=== PATIENT | female | born 1940 | race Caucasian/White ===

== ENCOUNTER 2023-11-23 21:51 | Inpatient (IN) | payer OTHER ==
[~2023-11-23] VITALS: Ht 160 cm; Wt 106.7 kg
[2023-11-23] MEDS ORDERED: IV NS 0.9% 1,000 ML BAG IV ONE ×2 (22:00→22:30)
[2023-11-23] MEDS ORDERED: HALOPERIDOL LACTATE INJ 5 MG/ML VIAL ONE (22:26)
[2023-11-23] MEDS ORDERED: HALOPERIDOL LACTATE INJ 5 MG/ML VIAL IM ONE (22:30)
[2023-11-23] MEDS ORDERED: PIPERACILLIN /TAZOBACTAM 3.375 G in IV D5W 50 ML IV ONE (23:00)
[2023-11-23] MEDS ORDERED: PIPERACI/TAZO 3.375GM/D5W 50ML PB IV ONE (23:09)
[2023-11-23 23:32] LABS: APPEARANCE,URINE SLIGHTLY CLOUDY (CLEAR); BILIRUBIN,URINE 1+ (NEGATIVE); BLOOD, URINE NEGATIVE Ery/uL (NEGATIVE); COLOR,URINE YELLOW (YELLOW); KETONES,URINE TRACE mg/dL (NEGATIVE); LEUKOCYTE ESTERASE ,URINE TRACE (NEGATIVE); NITRITE, URINE NEGATIVE (NEGATIVE); PROTEIN,URINE TRACE mg/dl (NEGATIVE); UGLUCOSE NEGATIVE (NEGATIVE); UROBILINOGEN,URINE 0.2 EU/dL (0.2)
[2023-11-23] MEDS ORDERED: NALOXONE PREFILLED SYRINGE 2 MG/2 ML SYRINGE ONE (23:32)
[2023-11-23 23:38] LABS: RBC,URINE 0-2 /HPF (0-2)
[2023-11-23 23:39] LABS: ADD URINE CULTURE NO; BACTERIA,URINE Rare /HPF (None Seen); SQUAMOUS EPITHELIAL CELL,UR Few /HPF (None Seen)
[2023-11-23 23:40] LABS: BARBITURATE, URINE NEGATIVE (NEGATIVE); BENZODIAZEPINE, URINE NEGATIVE (NEGATIVE); CANNABINOID, URINE NEGATIVE (NEGATIVE); COCCAINE, URINE NEGATIVE (NEGATIVE); PHENCYCLIDINE SCREEN,URINE NEGATIVE (NEGATIVE)
[2023-11-23 23:42] LABS: AMPHETAMINE, URINE POSITIVE (NEGATIVE); OPIATE, URINE POSITIVE (NEGATIVE)
[2023-11-23 23:46] LABS: BASOPHILS % (AUTO) 0.5 % (0.0-2.0); EOSINOPHILS # (AUTO) 0.1 K/uL (0.0-0.7); EOSINOPHILS % (AUTO) 1.2 % (0.0-6.0); LYMPHOCYTES # (AUTO) 0.3 K/uL (0.8-4.8); MEAN CORPUSCULAR HEMOGLOBIN 28 PG (26.0-33.0); MEAN CORPUSCULAR HGB CONC 29 g/dl (31.0-36.0); MEAN CORPUSCULAR VOLUME 98 fL (82-100); MONOCYTES # (AUTO) 0.2 K/uL (0.1-1.30); MONOCYTES % (AUTO) 3.9 % (2.0-12.0); NEUTROPHILS # (AUTO) 4.6 K/uL (1.8-8.9); NEUTROPHILS % (AUTO) 88.4 % (43.0-81.0); PLATELET COUNT (AUTO) 120 K/uL (150-450); RED CELL DISTRIBUTION WIDTH 18.7 % (11.5-15.0); WHITE BLOOD COUNT (AUTO) 5.2 K/uL (4.3-11.0)
[2023-11-23 23:50] LABS: RED BLOOD CELL COUNT(AUTO) 1.37 MIL/uL (4.0-5.2)
[2023-11-24] MEDS ORDERED: NALOXONE HCL 0.4 MG/ML AMPUL IV ONE
[2023-11-24] MEDS ORDERED: PANTOPRAZOLE 40 MG VIAL IV ONE
[2023-11-24 00:02] LABS: INR 1.36 (0.91-1.10); PARTIAL THROMBOPLASTIN TIME 31.7 SEC (24.3-34.3); PROTHROMBIN TIME 14.1 SECS (9.2-11.1)
[2023-11-24] MEDS ORDERED: PANTOPRAZOLE 40 MG VIAL ONE (00:04)
[2023-11-24 01:31] LABS: BASOPHILS # (AUTO) 0.1 K/uL (0.0-0.2); BASOPHILS % (AUTO) 0.4 % (0.0-2.0); EOSINOPHILS # (AUTO) 0.1 K/uL (0.0-0.7); EOSINOPHILS % (AUTO) 0.7 % (0.0-6.0); HEMATOCRIT 38 % (33-45); HEMOGLOBIN 11.8 g/dL (11.5-14.8); LYMPHOCYTES % (AUTO) 6.3 % (20.0-44.0); MEAN CORPUSCULAR HEMOGLOBIN 27 PG (26.0-33.0); MEAN CORPUSCULAR HGB CONC 31 g/dl (31.0-36.0); MEAN CORPUSCULAR VOLUME 84 fL (82-100); MONOCYTES # (AUTO) 0.6 K/uL (0.1-1.30); MONOCYTES % (AUTO) 3.5 % (2.0-12.0); NEUTROPHILS # (AUTO) 14.4 K/uL (1.8-8.9); NEUTROPHILS % (AUTO) 89.1 % (43.0-81.0); PLATELET COUNT (AUTO) 326 K/uL (150-450); RED BLOOD CELL COUNT(AUTO) 4.44 MIL/uL (4.0-5.2); RED CELL DISTRIBUTION WIDTH 17.4 % (11.5-15.0); WHITE BLOOD COUNT (AUTO) 16.1 K/uL (4.3-11.0)
[2023-11-24 01:39] LABS: HEMATOCRIT 13 % (33-45); HEMOGLOBIN 3.9 g/dL (11.5-14.8)
[2023-11-24 01:49] LABS: SERUM AMMONIA 11 umol/L (11-32)
[2023-11-24 01:51] LABS: ALANINE AMINOTRANSFERASE 46 U/L (12-78); ALBUMIN 1.7 g/dL (3.4-5.0); ALCOHOL, BLOOD < 3 mg/dL (0-10); ALKALINE PHOSPHATASE 125 U/L (46-116); ASPARTATE AMINOTRANSFERASE 44 U/L (15-37); BILIRUBIN,DIRECT 0.3 mg/dL (0.0-0.2); BILIRUBIN,TOTAL 0.5 mg/dL (0.2-1.0); CARBON DIOXIDE 22 mmol/L (21-32); CHLORIDE 101 mmol/L (98-107); CREATININE 1.1 mg/dL (0.6-1.3); GLUCOSE 111 mg/dL (74-106); POTASSIUM 3.9 mmol/L (3.5-5.1); SODIUM SERUM 133 mmol/L (136-145); TOTAL PROTEIN, SERUM 6.3 g/dL (6.4-8.2); UREA NITROGEN, BLOOD 26 mg/dL (7-18)
[2023-11-24] MEDS ORDERED: IV NS 0.9% 1,000 ML BAG IV ONE (02:00)
[2023-11-24] MEDS ORDERED: ALBUMIN 25% 12.5 GM/50 ML BOTTLE IV ONE (02:00)
[2023-11-24 02:02] LABS: THYROID STIMULATING HORMONE 22.037 uIU/mL (0.358-3.74)
[2023-11-24] MEDS ORDERED: ALBUMIN 25% 50 ML IV ONE ×2 (02:04→02:59)
[2023-11-24] MEDS ORDERED: IV NS 0.9% 1,000 ML IV PRN (02:30)
[2023-11-24] MEDS ORDERED: ENOXAPARIN SODIUM 40 MG/0.4 ML DISP.SYRIN SQ SCH (02:30)
[2023-11-24] MEDS ORDERED: QUETIAPINE FUMARATE 25 MG TABLET PO PRN (02:30)
[2023-11-24] MEDS ORDERED: Z GUARD REMEDY 4 OZ OINT TP PRN (02:30)
[2023-11-24] MEDS ORDERED: MAGNESIUM HYDROXIDE 30 ML UDC PO PRN (02:30)
[2023-11-24] MEDS ORDERED: dexaMETHasone SOD PHOSPHATE 1 ML ONE (03:50)
[2023-11-24] MEDS ORDERED: NOREPINEPHRINE 8MG/250ML RTU 250 ML IV ONE (03:59)
[2023-11-24] MEDS ORDERED: dexaMETHasone SOD PHOSPHATE 10 MG/ML VIAL IV ONE (04:00)
[2023-11-24] MEDS ORDERED: NOREPINEPHRINE 8 MG in IV NS 0.9% 250 ML IV ONE (04:00)
[2023-11-24] MEDS ORDERED: LEVOTHYROXINE INJ 100 MCG VIAL IV ONE (04:26)
[2023-11-24] MEDS ORDERED: LEVOTHYROXINE INJ 100 MCG VIAL IV SCH (07:30)
[2023-11-24] MEDS: PANTOPRAZOLE 40 MG TABLET.DR PO SCH ×2 (07:30→08:00)
[2023-11-24 07:38] LABS: BASOPHILS % (AUTO) 0.1 % (0.0-2.0); EOSINOPHILS % (AUTO) 0.1 % (0.0-6.0); HEMATOCRIT 37 % (33-45); HEMOGLOBIN 11.4 g/dL (11.5-14.8); LYMPHOCYTES # (AUTO) 0.7 K/uL (0.8-4.8); LYMPHOCYTES % (AUTO) 3.1 % (20.0-44.0); MEAN CORPUSCULAR HEMOGLOBIN 27 PG (26.0-33.0); MEAN CORPUSCULAR HGB CONC 31 g/dl (31.0-36.0); MEAN CORPUSCULAR VOLUME 86 fL (82-100); MONOCYTES # (AUTO) 0.4 K/uL (0.1-1.30); MONOCYTES % (AUTO) 1.7 % (2.0-12.0); NEUTROPHILS # (AUTO) 22.3 K/uL (1.8-8.9); PLATELET COUNT (AUTO) 440 K/uL (150-450); RED BLOOD CELL COUNT(AUTO) 4.25 MIL/uL (4.0-5.2); RED CELL DISTRIBUTION WIDTH 17.8 % (11.5-15.0); WHITE BLOOD COUNT (AUTO) 23.5 K/uL (4.3-11.0)
[2023-11-24 07:51] LABS: CALCIUM, SERUM 7.6 mg/dL (8.5-10.1); CREATININE 1.1 mg/dL (0.6-1.3); MAGNESIUM 1.6 mg/dL (1.8-2.4); POTASSIUM 3.9 mmol/L (3.5-5.1)
[2023-11-24 08:10] LABS: THYROID STIMULATING HORMONE 10.095 uIU/mL (0.358-3.74)
[2023-11-24] MEDS ORDERED: ACET-2605 PO (08:28)
[2023-11-24] MEDS ORDERED: ASPI-1169 PO (08:28)
[2023-11-24] MEDS ORDERED: HYDR4TAB57 PO (08:28)
[2023-11-24] MEDS ORDERED: PANT40TA49 PO (08:28)
[2023-11-24] MEDS ORDERED: PREG75CA PO (08:28)
[2023-11-24] MEDS ORDERED: ASCO100058 PO (08:28)
[2023-11-24] MEDS ORDERED: CARV6.252 PO (08:28)
[2023-11-24] MEDS ORDERED: MILN50TA PO (08:28)
[2023-11-24] MEDS ORDERED: MELA5TAB PO (08:28)
[2023-11-24] MEDS ORDERED: HYDR-3980 PO (08:28)
[2023-11-24] MEDS ORDERED: METF750T46 PO (08:28)
[2023-11-24] MEDS ORDERED: FISH1CAP16 PO (08:28)
[2023-11-24] MEDS ORDERED: MAGN400O6 PO (08:28)
[2023-11-24] MEDS ORDERED: SACU1TAB PO (08:28)
[2023-11-24] MEDS ORDERED: MIRT-91 PO (08:28)
[2023-11-24] MEDS ORDERED: QUET25TA PO (08:28)
[2023-11-24] MEDS ORDERED: DONE10TA44 PO (08:28)
[2023-11-24] MEDS ORDERED: MEMA28CA5 PO (08:28)
[2023-11-24] MEDS ORDERED: CHOL100043 PO (08:28)
[2023-11-24] MEDS ORDERED: TAPE50TA2 PO (08:28)
[2023-11-24] MEDS ORDERED: ATOR40TA PO (08:28)
[2023-11-24] MEDS ORDERED: LEVO150T8 PO (08:28)
[2023-11-24] MEDS: PIPERACILLIN /TAZOBACTAM 3.375 G in IV D5W 50 ML IV SCH ×3 (08:30→18:00)
[2023-11-24] MEDS ORDERED: MAGNESIUM OXIDE 400 MG TABLET PO ONE (11:00)
[2023-11-24] MEDS ORDERED: DEXTROSE 50%-WATER 50 ML DISP.SYRIN IV PRN (14:00)
[2023-11-24] MEDS: IV D5/ 0.9% NACL 1,000 ML IV SCH (15:00)
[2023-11-24] MEDS: BLOOD SUGAR DIAGNOSTIC 1 EACH STRIP VI SCH ×2 (17:30→22:38)
[2023-11-24] MEDS ORDERED: PIPERACI/TAZO 3.375GM/D5W 50ML PB IV ONE (19:39)
[2023-11-24] MEDS ORDERED: ZOLPIDEM TARTRATE 5 MG TABLET PO PRN (22:00)
[2023-11-24] MEDS: *INSULIN REGULAR(HUMULIN R)HUM 100 UNIT/ML VIAL SQ PRN (22:56)
[2023-11-25] MEDS: PIPERACILLIN /TAZOBACTAM 3.375 G in IV D5W 50 ML IV SCH ×4 (00:01→17:15)
[2023-11-25] MEDS ORDERED: PIPERACI/TAZO 3.375GM/D5W 50ML PB IV ONE (00:03)
[2023-11-25] MEDS ORDERED: ENOXAPARIN SODIUM 40 MG/0.4 ML DISP.SYRIN SQ ONE (01:36)
[2023-11-25] MEDS: ENOXAPARIN SODIUM 40 MG/0.4 ML DISP.SYRIN SQ SCH ×2 (01:40→21:08)
[2023-11-25] MEDS: IV D5/ 0.9% NACL 1,000 ML IV SCH ×2 (03:24→15:51)
[2023-11-25] MEDS: BLOOD SUGAR DIAGNOSTIC 1 EACH STRIP VI SCH ×4 (07:30→21:24)
[2023-11-25] MEDS: PANTOPRAZOLE 40 MG TABLET.DR PO SCH (08:00)
[2023-11-25] MEDS ORDERED: PANTOPRAZOLE 40 MG TABLET.DR PO ONE (08:14)
[2023-11-25] MEDS: LEVOTHYROXINE INJ 100 MCG VIAL IV SCH (09:00)
[2023-11-25 10:29] LABS: CALCIUM, SERUM 7.6 mg/dL (8.5-10.1); CREATININE 0.9 mg/dL (0.6-1.3); MAGNESIUM 1.7 mg/dL (1.8-2.4); PHOSPHORUS 2.5 mg/dL (2.5-4.9); POTASSIUM 3.7 mmol/L (3.5-5.1)
[2023-11-25 10:30] LABS: BASOPHILS % (AUTO) 0.1 % (0.0-2.0); EOSINOPHILS % (AUTO) 0.1 % (0.0-6.0); HEMATOCRIT 39 % (33-45); HEMOGLOBIN 11.7 g/dL (11.5-14.8); LYMPHOCYTES # (AUTO) 0.5 K/uL (0.8-4.8); LYMPHOCYTES % (AUTO) 3.6 % (20.0-44.0); MEAN CORPUSCULAR HEMOGLOBIN 27 PG (26.0-33.0); MEAN CORPUSCULAR HGB CONC 30 g/dl (31.0-36.0); MEAN CORPUSCULAR VOLUME 89 fL (82-100); MONOCYTES # (AUTO) 0.7 K/uL (0.1-1.30); MONOCYTES % (AUTO) 4.8 % (2.0-12.0); NEUTROPHILS # (AUTO) 13.2 K/uL (1.8-8.9); NEUTROPHILS % (AUTO) 91.4 % (43.0-81.0); PLATELET COUNT (AUTO) 377 K/uL (150-450); RED BLOOD CELL COUNT(AUTO) 4.38 MIL/uL (4.0-5.2); RED CELL DISTRIBUTION WIDTH 18.7 % (11.5-15.0); WHITE BLOOD COUNT (AUTO) 14.4 K/uL (4.3-11.0)
[2023-11-25] MEDS: *INSULIN REGULAR(HUMULIN R)HUM 100 UNIT/ML VIAL SQ PRN ×2 (15:03→21:26)
[2023-11-25] MEDS: INSULIN REGULAR, HUMAN 100 UNIT/ML 3 ML VIAL SQ PRN (16:40)
[2023-11-25 20:00] VITALS: BP 129/69; TEMP 97; O2SAT 98
[2023-11-26] VITALS: BP 131/79; TEMP 98.4; O2SAT 98
[2023-11-26] MEDS: PIPERACILLIN /TAZOBACTAM 3.375 G in IV D5W 50 ML IV SCH ×4 (00:21→19:04)
[2023-11-26 04:00] VITALS: BP 139/89; TEMP 98.2; O2SAT 97
[2023-11-26] MEDS: IV D5/ 0.9% NACL 1,000 ML IV SCH ×2 (05:47→20:31)
[2023-11-26 08:00] VITALS: BP 135/78; TEMP 98.7; O2SAT 99
[2023-11-26] MEDS: PANTOPRAZOLE 40 MG TABLET.DR PO SCH (08:02)
[2023-11-26] MEDS: BLOOD SUGAR DIAGNOSTIC 1 EACH STRIP VI SCH ×4 (08:02→21:38)
[2023-11-26] MEDS: *INSULIN REGULAR(HUMULIN R)HUM 100 UNIT/ML VIAL SQ PRN (08:14)
[2023-11-26] MEDS: LEVOTHYROXINE INJ 100 MCG VIAL IV SCH (08:40)
[2023-11-26] MEDS: ONDANSETRON HCL/PF 4 MG/2 ML VIAL IVP PRN (10:32)
[2023-11-26 12:00] VITALS: BP 156/77; TEMP 98; O2SAT 99
[2023-11-26] MEDS: ACETAMINOPHEN 325 MG TABLET PO PRN (12:44)
[2023-11-26 16:00] VITALS: BP 130/84; TEMP 97.7; O2SAT 94
[2023-11-26 20:19] VITALS: BP 146/76; TEMP 97.9; O2SAT 99
[2023-11-26] MEDS: ENOXAPARIN SODIUM 40 MG/0.4 ML DISP.SYRIN SQ SCH (21:00)
[2023-11-27 00:03] VITALS: BP 150/85; TEMP 97.9; O2SAT 98
[2023-11-27] MEDS: PIPERACILLIN /TAZOBACTAM 3.375 G in IV D5W 50 ML IV SCH ×5 (00:41→23:23)
[2023-11-27 04:04] VITALS: BP 139/85; TEMP 98; O2SAT 98
[2023-11-27] MEDS: ONDANSETRON HCL/PF 4 MG/2 ML VIAL IVP PRN (06:22)
[2023-11-27] MEDS: BLOOD SUGAR DIAGNOSTIC 1 EACH STRIP VI SCH ×4 (07:51→21:40)
[2023-11-27 08:00] VITALS: BP 144/91; TEMP 98; O2SAT 97
[2023-11-27 08:03] LABS: EOSINOPHILS # (AUTO) 0.1 K/uL (0.0-0.7); EOSINOPHILS % (AUTO) 1.1 % (0.0-6.0); HEMATOCRIT 39 % (33-45); HEMOGLOBIN 12.1 g/dL (11.5-14.8); LYMPHOCYTES # (AUTO) 0.6 K/uL (0.8-4.8); LYMPHOCYTES % (AUTO) 6.7 % (20.0-44.0); MEAN CORPUSCULAR HEMOGLOBIN 26 PG (26.0-33.0); MEAN CORPUSCULAR HGB CONC 32 g/dl (31.0-36.0); MEAN CORPUSCULAR VOLUME 84 fL (82-100); MONOCYTES # (AUTO) 0.4 K/uL (0.1-1.30); MONOCYTES % (AUTO) 3.9 % (2.0-12.0); NEUTROPHILS % (AUTO) 88.3 % (43.0-81.0); PLATELET COUNT (AUTO) 410 K/uL (150-450); RED BLOOD CELL COUNT(AUTO) 4.61 MIL/uL (4.0-5.2); WHITE BLOOD COUNT (AUTO) 9.1 K/uL (4.3-11.0)
[2023-11-27 08:14] LABS: CALCIUM, SERUM 7.9 mg/dL (8.5-10.1); CREATININE 0.7 mg/dL (0.6-1.3)
[2023-11-27] MEDS: PANTOPRAZOLE 40 MG TABLET.DR PO SCH (08:26)
[2023-11-27] MEDS: LEVOTHYROXINE INJ 100 MCG VIAL IV SCH (08:27)
[2023-11-27] MEDS: *INSULIN REGULAR(HUMULIN R)HUM 100 UNIT/ML VIAL SQ PRN (08:29)
[2023-11-27] MEDS ORDERED: POTASSIUM CHLORIDE 20 MEQ POWDER PACKET PO ONE (10:00)
[2023-11-27 12:00] VITALS: BP 146/94; TEMP 98.1; O2SAT 98
[2023-11-27 16:00] VITALS: BP 129/76; TEMP 98.1; O2SAT 97
[2023-11-27] MEDS: HYDROCODONE/APAP 5/325MG TABLET PO PRN ×2 (16:59→17:43)
[2023-11-27 20:00] VITALS: BP 153/93; TEMP 97.9; O2SAT 98
[2023-11-27] MEDS: ENOXAPARIN SODIUM 40 MG/0.4 ML DISP.SYRIN SQ SCH (20:46)
[2023-11-28] VITALS (7 sets, daily range): BP systolic 138–155; BP diastolic 79–91; TEMP 97–98; O2SAT 93–99
[2023-11-28] MEDS: PIPERACILLIN /TAZOBACTAM 3.375 G in IV D5W 50 ML IV SCH ×3 (05:09→18:07)
[2023-11-28] MEDS: BLOOD SUGAR DIAGNOSTIC 1 EACH STRIP VI SCH ×4 (06:30→21:57)
[2023-11-28 06:56] LABS: BASOPHILS % (AUTO) 0.1 % (0.0-2.0); EOSINOPHILS # (AUTO) 0.2 K/uL (0.0-0.7); EOSINOPHILS % (AUTO) 2.5 % (0.0-6.0); HEMATOCRIT 37 % (33-45); HEMOGLOBIN 11.7 g/dL (11.5-14.8); LYMPHOCYTES % (AUTO) 12.5 % (20.0-44.0); MEAN CORPUSCULAR HEMOGLOBIN 27 PG (26.0-33.0); MEAN CORPUSCULAR HGB CONC 32 g/dl (31.0-36.0); MEAN CORPUSCULAR VOLUME 86 fL (82-100); MONOCYTES # (AUTO) 0.5 K/uL (0.1-1.30); MONOCYTES % (AUTO) 6.3 % (2.0-12.0); NEUTROPHILS % (AUTO) 78.6 % (43.0-81.0); PLATELET COUNT (AUTO) 341 K/uL (150-450); RED BLOOD CELL COUNT(AUTO) 4.29 MIL/uL (4.0-5.2); RED CELL DISTRIBUTION WIDTH 18.4 % (11.5-15.0); WHITE BLOOD COUNT (AUTO) 7.7 K/uL (4.3-11.0)
[2023-11-28 07:15] LABS: CALCIUM, SERUM 8.5 mg/dL (8.5-10.1); CREATININE 0.7 mg/dL (0.6-1.3); POTASSIUM 3.8 mmol/L (3.5-5.1)
[2023-11-28] MEDS: PANTOPRAZOLE 40 MG TABLET.DR PO SCH (07:47)
[2023-11-28] MEDS ORDERED: PIPE3.379 IV (10:15)
[2023-11-28] MEDS: LEVOTHYROXINE INJ 100 MCG VIAL IV SCH (10:23)
[2023-11-28] MEDS ORDERED: PANTOPRAZOLE 40 MG TABLET.DR PO SCH (12:23)
[2023-11-28] MEDS: HYDROCODONE/APAP 5/325MG TABLET PO PRN (16:04)
[2023-11-28] MEDS: ENOXAPARIN SODIUM 40 MG/0.4 ML DISP.SYRIN SQ SCH (21:46)
[2023-11-28] MEDS: INSULIN REGULAR, HUMAN 100 UNIT/ML 3 ML VIAL SQ PRN ×2 (22:05→23:52)
[2023-11-29 04:00] VITALS: BP 157/80; TEMP 96.8; O2SAT 97
[2023-11-29] MEDS: PIPERACILLIN /TAZOBACTAM 3.375 G in IV D5W 50 ML IV SCH ×3 (05:58)
[2023-11-29] MEDS: BLOOD SUGAR DIAGNOSTIC 1 EACH STRIP VI SCH ×4 (07:18→20:59)
[2023-11-29] MEDS: *INSULIN REGULAR(HUMULIN R)HUM 100 UNIT/ML VIAL SQ PRN ×2 (07:19→21:03)
[2023-11-29] MEDS: LEVOTHYROXINE SODIUM 100 MCG TABLET PO SCH (07:19)
[2023-11-29 08:00] VITALS: BP 157/91; TEMP 97.7; O2SAT 97
[2023-11-29] MEDS: PANTOPRAZOLE 40 MG TABLET.DR PO SCH (08:57)
[2023-11-29 12:00] VITALS: BP 157/91; TEMP 207.9; TEMP 97.7; O2SAT 97
[2023-11-29] MEDS: PIPERACILLIN /TAZOBACTAM 3.375 G in IV D5W 100 ML IV SCH ×2 (13:14→20:43)
[2023-11-29 16:00] VITALS: BP 140/79; TEMP 97.9; O2SAT 97
[2023-11-29] MEDS: PROSOURCE / PROSTAT (PYXIS) 30 ML UDC PO SCH (16:50)
[2023-11-29] MEDS: ACETAMINOPHEN 325 MG TABLET PO PRN (17:03)
[2023-11-29 20:00] VITALS: BP 150/82; TEMP 97.8; O2SAT 97
[2023-11-29] MEDS: ENOXAPARIN SODIUM 40 MG/0.4 ML DISP.SYRIN SQ SCH (20:57)
[2023-11-30] VITALS: BP 148/80; TEMP 97.8; O2SAT 97
[2023-11-30 04:00] VITALS: BP 141/74; TEMP 97.7; O2SAT 97
[2023-11-30] MEDS: PIPERACILLIN /TAZOBACTAM 3.375 G in IV D5W 100 ML IV SCH (04:06)
[2023-11-30] MEDS: BLOOD SUGAR DIAGNOSTIC 1 EACH STRIP VI SCH ×2 (07:30→12:22)
[2023-11-30 08:00] VITALS: BP 117/95; TEMP 98.1; O2SAT 97
[2023-11-30] MEDS: PANTOPRAZOLE 40 MG TABLET.DR PO SCH (08:18)
[2023-11-30] MEDS: LEVOTHYROXINE SODIUM 100 MCG TABLET PO SCH (08:18)
[2023-11-30] MEDS: PROSOURCE / PROSTAT (PYXIS) 30 ML UDC PO SCH (08:18)
== END 2023-11-30 13:30 | disposition hospice, home (50) | DRG 917 ==
LOC: ER 21:53 → TRANSITION 11-24 07:07 → TELE1 11-25 11:09 → MEDSG1 11-28 13:26
PROVIDERS: ADMIT Internal Medicine; ATTEND Internal Medicine
PROC: 05H533Z Insertion of Infusion Device into Right Subclavian Vein, Percutaneous Approach (ICD-10-PCS; principal; 2023-11-24)
PROC: B546ZZA Ultrasonography of Right Subclavian Vein, Guidance (ICD-10-PCS; 2023-11-24)
DX: T40.2X1A Poisoning by other opioids, accidental (unintentional), initial encounter (principal); A41.9 Sepsis, unspecified organism; G92.8 Other toxic encephalopathy; J15.69 Pneumonia due to other Gram-negative bacteria; J69.0 Pneumonitis due to inhalation of food and vomit; E87.1 Hypo-osmolality and hyponatremia; E87.20 Acidosis, unspecified; E86.1 Hypovolemia; D64.9 Anemia, unspecified; E11.9 Type 2 diabetes mellitus without complications; E86.0 Dehydration; G89.29 Other chronic pain; I11.0 Hypertensive heart disease with heart failure; I50.9 Heart failure, unspecified; Z79.84 Long term (current) use of oral hypoglycemic drugs; T43.621A Poisoning by amphetamines, accidental (unintentional), initial encounter; Y92.89 Other specified places as the place of occurrence of the external cause; R79.89 Other specified abnormal findings of blood chemistry
CPT/HCPCS: 36415; 70450-TC; 71045-TC; 80048-TC; 80076-TC; 81001; 82140-TC; 82962-TC; 83735-TC; 84100-TC; 84439-TC; 84443-TC; 84481; 84484-TC; 85025-TC; 85730-TC; 86850-TC; 87040-TC; 92526; 92611-TC; 97110-TC; 97112-TC; 97530-TC; A4223; C9113; G0378; G0480; J1100; J1630; J1650; J1815; J2310; J2405; J2543; J7042; J7050; J7060; J7070; P9047